=== PATIENT | male | born 1990 | race Caucasian/White ===

== ENCOUNTER 2018-10-03 17:38 | Emergency (ER) | payer MEDICAID ==
[2018-10-03] MEDS ORDERED: NS 500 ML IV ONE (17:53)
[2018-10-03] MEDS ORDERED: KETOROLAC 30 MG/1 ML SDV IVP ONE (18:40)
[2018-10-03] MEDS ORDERED: IOPAMIDOL (ISOVUE 370) 100 ML BTL IV ONE (18:51)
--- NOTE | 2018-10-03 19:01 | EDPHY ---
H & P Time Seen by Provider: 10/03/18 17:53 HPI/ROS: HPI Right-sided chest pain. 28-year-old male by private vehicle. This patient complains of right-sided upper anterior chest pain onset about 3 days ago. No history of traumatic injury. He states that it hurts more when he takes a deep breath or flexes his chest out. He denies any shortness of breath at rest. He has never had this pain before. He does use cocaine. Last use he reports was last night. He denies onset of chest pain in association with cocaine use. He describes himself is otherwise very athletic. He does have a history of attention deficit hyperactivity disorder. He is not currently on any prescription medications. ROS: Constitutional: No fever, no chills. No weakness. Eyes: No discharge. No changes in vision. ENT: No sore throat. No nasal congestion or rhinorrhea. Respiratory: No cough. No shortness of breath. Cardiac: As above, no palpitations. Gastrointestinal: No abdominal pain, no vomiting, no diarrhea. Genitourinary: No hematuria. No dysuria or increased frequency with urination. Musculoskeletal: No back pain. No neck pain. No myalgias or arthralgias. Skin: No rashes. Neurological: No headache. No focal weakness or altered sensation. Past medical history: As above. Social history: He does smoke cigarettes. He uses cocaine. He smokes marijuana. He is currently here by himself. He denies alcohol. Physical Exam: General Appearance: Alert, no distress. This patient is responding to questions appropriately and in full sentences. This patient appears well- hydrated and well-nourished. Eyes: Pupils equal and round no pallor or injection. No lid edema, erythema or injection. Respiratory: There are no retractions, lungs are clear to auscultation with good air movement bilaterally. Chest wall is stable on AP and lateral palpation. He describes his pain as being midclavicular line 3rd to 4th intercostal space anteriorly. He does have some vague reproducibility an increase in his pain with the palpation of this area. No rashes associated. Cardiovascular: Regular rate and rhythm. No murmur. Neurological: Motor sensory function is grossly intact. Cranial nerves are normal. Gait is normal. Skin: Warm and dry, no rashes. Musculoskeletal: Neck is supple and nontender. Extremities are symmetrical. All joints range without pain or impingement. Psychiatric: No agitation. No depression. Database: EKG: EKG time is 5:54 p.m.; EKG shows a narrow complex normal sinus rhythm with a ventricular rate of 63. The [place], QRS, QT intervals are within normal limits. There are no ST-T wave changes indicative of ischemic or injury pattern. No evidence of right heart strain. Interpreted by me. Imaging: Chest x-ray PA and lateral; the cardiac mediastinal silhouette is unremarkable. No evidence of infiltrate or pneumothorax. No acute cardiopulmonary disease process noted. Interpreted by me. CT angiogram of chest: Negative for pulmonary embolism or other pathology. Results were discussed with staff radiologist Dr. Paul Byrd. Procedures: Emergency department course: Triage vital signs reviewed and are normal. An IV was placed. He was placed on a night monitor. EKG performed and reviewed by myself. 6:45 p.m., patient re-evaluated. He stated that his chest pain had worsen. He does have an elevation of his D-dimer. He consents to CT angiogram of his chest to evaluate for possible pulmonary embolism. He was given 30 mg of IV Toradol. He has no contraindications to NSAIDs. He has a normal creatinine today. 7:25 p.m., patient re-evaluated, he states he feels better after IV Toradol. Results of his diagnostic workup discussed with him thoroughly. His girlfriend is currently in the room. At this time he feels comfortable going home. I discussed follow-up and return to emergency department precautions. I discussed high-dose ibuprofen for the next 3 days. All of his questions were answered. He was discharged from the emergency department in good condition with his girlfriend. Differential Diagnosis: The differential diagnosis on this patient includes but is not limited to costal chondritis, pleurisy, musculoskeletal etiology of chest pain. Pneumothorax, pulmonary embolism, acute coronary syndrome, aortic dissection unlikely. This represents a partial list of diagnoses considered. These considerations are based on history, physical exam, past history, reassessment and diagnostic testing. Smoking Status: Light smoker Constitutional: Initial Vital Signs Temperature (C) 36.7 C 10/03/18 17:42 Heart Rate 84 10/03/18 17:42 Respiratory Rate 16 10/03/18 17:42 Blood Pressure 130/98 H 10/03/18 17:42 O2 Sat (%) 99 10/03/18 17:42 O2 Delivery Mode Room Air Allergies/Adverse Reactions: No Known Allergies Allergy (Verified 10/03/18 17:41) Home Medications: Medication Instructions Recorded Multivitamins [Multivitamin (*)] 1 each PO DAILY 11/03/15 Medical Decision Making - Data Points Laboratory Results: Laboratory Results 10/03/18 18:00 Medications Given: Discontinued Medications Sodium Chloride (Ns) 500 mls @ 1,000 mls/hr IV EDNOW ONE PRN Reason: Protocol Stop: 10/03/18 18:22 Last Admin: 10/03/18 18:11 Dose: 500 mls Ketorolac Tromethamine (Toradol) 30 mg IVP EDNOW ONE Stop: 10/03/18 18:41 Last Admin: 10/03/18 18:52 Dose: 30 mg Point of Care Test Results: Chemistry 10/03/18 18:03 POC Troponin I 0.00 ng/mL ng/mL (0.00-0.08) Departure - Departure Disposition: Home, Routine, Self-Care Clinical Impression: Chest pain Condition: Good Instructions: Chest Wall Pain (ED) Additional Instructions: Read and follow provided instructions. Follow-up with your primary care physician in 2-3 days for re-evaluation. Avoid any activity which exacerbates or worsens your pain. Do not use cocaine or other street drugs. Cocaine is very harmful to your heart. Avoid smoking cigarettes. You can start taking ibuprofen tomorrow morning. Ibuprofen dosin mg every 6 hours with meals for the next 3 days only. Take only as needed for pain. Return to the emergency department for worsening pain, difficulty breathing or other serious concerns. Referrals: NONE *PRIMARY CARE P,. [Primary Care Provider] - As per Instructions
[2018-10-03 19:33] VITALS: BP 161/83
--- NOTE | 2018-10-07 18:10 | CPEKG ---
Test Reason : OPEN Blood Pressure : / mmHG Vent. Rate : 063 BPM Atrial Rate : 063 BPM P-R Int : 124 ms QRS Dur : 097 ms QT Int : 395 ms P-R-T Axes : 063 078 034 degrees QTc Int : 405 ms Sinus rhythm Confirmed by Neeru Morgan ([id number]) on 10/07/2018 6:10:17 PM Referred By: Yves Subramanian Confirmed By:Neeru Morgan
== END 2018-10-03 19:33 | disposition home or self-care (01) ==
DX: R07.9 Chest pain, unspecified (principal); F17.200 Nicotine dependence, unspecified, uncomplicated
CPT/HCPCS: 84484-ER; 96374; J1885; Q9967

== ENCOUNTER 2018-12-10 23:52 | Emergency (ER) | payer MEDICAID ==
--- NOTE | 2018-12-11 00:10 | EDPHY ---
H & P Stated Complaint: left middle finger LAC Time Seen by Provider: 12/11/18 00:01 HPI/ROS: Chief complaint: Left middle finger laceration. History of present illness: This is a 28-year-old male who presents to the emergency department after cutting his left middle finger with a knife just prior to arrival. Minimal pain. Minimal bleeding. He is still moving the finger well. No report of abnormal coolness or paresthesias in the finger. His tetanus is up-to-date. - Personal History Current Tetanus Diphtheria and Acellular Pertussis (TDAP): Yes - Medical/Surgical History Hx Asthma: No Hx Chronic Respiratory Disease: No Hx Diabetes: No Hx Cardiac Disease: No Hx Renal Disease: No Hx Cirrhosis: No Hx Alcoholism: No Hx HIV/AIDS: No Hx Splenectomy or Spleen Trauma: No Other PMH: R hand surgery fracture, ADHD. - Social History Smoking Status: Never smoked - Physical Exam Exam: General: Alert, nontoxic. Skin: 1 cm laceration to the lateral aspect of the left middle finger. Musculoskeletal: He is flexing extending the finger in the DIP, PIP and MCP joint well. Vascular: Capillary refill brisk in the left middle finger. Neurologic: Sensation intact using light touch and two-point discrimination. Constitutional: Initial Vital Signs Temperature (C) 36.7 C 12/10/18 23:55 Heart Rate 69 12/10/18 23:55 Respiratory Rate 18 12/10/18 23:55 Blood Pressure 118/67 12/10/18 23:55 O2 Sat (%) 96 12/10/18 23:55 O2 Delivery Mode Room Air Allergies/Adverse Reactions: No Known Allergies Allergy (Verified 12/10/18 23:55) Home Medications: Medication Instructions Recorded Multivitamins [Multivitamin (*)] 1 each PO DAILY 11/03/15 Medical Decision Making Procedures: Procedure: Laceration repair. Verbal consent was obtained from the patient. The 1 cm laceration on the left middle finger was anesthetized in the usual fashion. The wound was irrigated, draped and explored to its base with a gloved finger. There were no deep structures involved. No tendon injury was identified. The wound was repaired with 5 0 Prolene, 3 simple interrupted sutures. The wound repair was simple. The procedure was performed by myself. ED Course/Re-evaluation: Patient seen under the supervision of my secondary supervising physician Dr. Lamberto Holliday. Patient presents to the emergency department for left middle finger laceration. Finger appears to be neurovascularly intact. He has good musculoskeletal control. It has been anesthetized, cleaned and repaired. Home care is discussed. He is to follow up with a hand doctor for recheck. Return precautions are given. Patient voiced understanding and agreement with plan. Differential Diagnosis: Included but not limited to simple laceration, foreign body contamination, deep structure injury Departure - Departure Disposition: Home, Routine, Self-Care Clinical Impression: Finger laceration Qualifiers: Encounter type: initial encounter Finger: middle finger Damage to nail status: without damage Foreign body presence: without foreign body Laterality: left Qualified Code(s): S61.213A - Laceration without foreign body of left middle finger without damage to nail, initial encounter Condition: Good Instructions: Finger Laceration (ED) Additional Instructions: Follow-up with a primary care doctor or hand doctor for recheck Stitches to be removed in 7 days If symptoms worsen or new symptoms develop return to the emergency room for recheck Referrals: NONE *PRIMARY CARE P,. [Primary Care Provider] - As per Instructions [facility],. [Clinic] - As per Instructions Michele Mcdonnell MD [Medical Doctor] - As per Instructions
[2018-12-11 00:41] VITALS: BP 120/70
== END 2018-12-11 00:39 | disposition home or self-care (01) ==
PROC: 0HQGXZZ Repair Left Hand Skin, External Approach (ICD-10-PCS; principal; 2018-12-10)
DX: S61.213A Laceration without foreign body of left middle finger without damage to nail, initial encounter (principal); W26.0XXA Contact with knife, initial encounter; Y93.89 Activity, other specified